=== PATIENT | male | born 1980 | race Caucasian/White ===

== ENCOUNTER 2016-08-11 12:56 | Emergency (ER) | payer SELFPAY ==
[2016-08-11] MEDS ORDERED: TAMSULOSIN HCL 0.4 MG CAP.SR.24H PO ONE (13:38)
[2016-08-11] MEDS ORDERED: OXYCODONE-ACETAMINOPHEN 5-325 MG TABLET PO ONE (13:38)
--- NOTE | 2016-08-11 13:39 | ER Document Report ---
ED Medical Screen (RME) - General Chief Complaint: Flank Pain Stated Complaint: LEFT FLANK PAIN Time seen by provider: 13:38 Mode of Arrival: Ambulatory Information source: Patient Notes: This is a 36-year-old man with a history of kidney stones or presents with left flank pain for the last day. Patient denies any fever, chills, nausea vomiting. Patient does report 3 days of diarrhea. He states the diarrhea has been watery. TRAVEL OUTSIDE OF THE [place] IN LAST 30 DAYS: No - HPI Onset: Just prior to arrival Onset/Duration: Sudden Quality of pain: Dull Severity: Moderate Pain Level: 3 Associated Symptoms: denies: Chest pain, Shortness of breath, Sinus pain/ drainage Exacerbated by: Denies Relieved by: Denies Similar symptoms previously: No Recently seen / treated by doctor: No - Related Data Smoking: Non-smoker Frequency of alcohol use: None Drug Abuse: None Allergies/Adverse Reactions: morphine [Morphine] Allergy (Verified 08/11/16 13:04) ketorolac tromethamine [From Toradol] Adverse Reaction (Verified 08/11/16 13:04) Past Medical History - General Information source: Patient - Social History Cigarette use (# per day): No Chew tobacco use (# tins/day): No Frequency of alcohol use: Occasional Drug Abuse: None Lives with: Family Family history: None - Medical History Medical History: Negative Renal/ Medical History: Reports: Hx Kidney Stones. Denies: Hx Peritoneal Dialysis GI Medical History: Reports: Hx Hepatitis - C Psychiatric Medical History: Reports: Hx Depression Infectious Medical History: Reports: Hx Hepatitis - C Past Surgical History: Reports: Hx Orthopedic Surgery - right wrist, Hx Urinary Tract Surgery - Immunizations Hx Diphtheria, Pertussis, Tetanus Vaccination: Yes Review of Systems - Review of Systems Constitutional: No symptoms reported EENT: No symptoms reported Cardiovascular: No symptoms reported Respiratory: No symptoms reported Gastrointestinal: No symptoms reported Genitourinary: No symptoms reported Male Genitourinary: See HPI Musculoskeletal: See HPI Skin: No symptoms reported Hematologic/Lymphatic: No symptoms reported Neurological/Psychological: No symptoms reported Physical Exam - Vital signs Vitals: Temp Pulse Resp BP Pulse Ox 98.2 F 64 16 131/71 H 99 08/11/16 13:04 08/11/16 13:04 08/11/16 13:04 08/11/16 13:04 08/11/16 13:04 Notes: Physical exam: GENERAL: 46-year-old man, alert and oriented 3, no acute distress HEAD: Atraumatic, normocephalic. EYES: Pupils equal round and reactive to light, extraocular movements intact, sclera anicteric, conjunctiva are normal. ENT: TMs normal, nares patent, oropharynx clear without exudates. Moist mucous membranes. NECK: Normal range of motion, supple without lymphadenopathy or JVD. LUNGS: Breath sounds clear to auscultation bilaterally and equal. No wheezes rales or rhonchi. HEART: Regular rate and rhythm without murmurs, rubs or gallops. ABDOMEN: Soft, normoactive bowel sounds. No tenderness to palpation. No guarding, no rebound. No masses appreciated. Left CVA tenderness. EXTREMITIES: Normal range of motion, no pitting or edema. No clubbing or cyanosis. NEUROLOGICAL: Cranial nerves II through XII grossly intact. Normal speech, normal gait. PSYCH: Normal mood, normal affect. SKIN: Warm, Dry, normal turgor, no rashes or lesions noted. Bedside ultrasound: No significant left-sided nephrosis. Course - Re-evaluation Re-evalutation: 08/11/16 15:25 Patient treated with IV fluids. Bedside ultrasound shows no obvious hydronephrosis. I did discuss the issue with repeat CAT scans with the patient as well as the patient's mother who is at the bedside. An attempt to reduce the amount of radiation exposure, we will forego the CT of the abdomen, treat him conservatively and see how he does over the next week or so. 08/11/16 15:25 - Vital Signs Vital signs: Temp Pulse Resp BP Pulse Ox 97.6 F 62 18 127/74 H 100 08/11/16 15:23 08/11/16 15:23 08/11/16 15:23 08/11/16 15:23 08/11/16 15:23 - Laboratory Result Diagrams: 08/11/16 13:55 08/11/16 13:55 Laboratory results interpreted by me: 08/11/16 14:02 Urine Ketones TRACE H Urine Blood MODERATE H Doctor's Discharge - Discharge Clinical Impression: left renal colic Condition: Stable Disposition: HOME, SELF-CARE Instructions: Kidney Stone ([facility]) Additional Instructions: Recommendations: Rest, drink plenty of fluids, take pain medicine as needed. Keep in mind that the Percocet is a narcotic: See the narcotic instruction sheet. Take the Phenergan for nausea. If you are able to take ibuprofen, I recommend taking this to supplement for pain control. Follow-up at the [facility]: I left the number on the chart. We do not have a urologist at this hospital: I left the number for local urologist who works out of [facility] in [place]. It is recommended that you follow-up with a urologist: [facility] Office [address] [place], [place] [phone] [place] Office [address] [facility]. [place], [place] [phone] The pain medicine you're taking prescribed as a narcotic. There are several important things you should know about this medicine: 1. This medicine contains Tylenol: It is important that you do not take Tylenol (or acetaminophen) while on this medicine. Tylenol is metabolized by the liver and taking too much Tylenol (acetaminophen) can lay to liver damage and even liver failure. 2. Taking narcotics for too long can lead to physical and mental dependence. Take this medicine only if really needed and in the lowest quantity to achieve pain relief. 3. Do not drink alcohol while on this medicine. Alcohol interacts with narcotics and the combination can be dangerous. 4. Do not drive or operate machinery while on this medicine. 5. Narcotics do cause constipation, so drink plenty of fluids and daily stool softeners. Prescriptions: Oxycodone HCl/Acetaminophen [Percocet 5-325 mg Tablet] 1 - 2 tab PO ASDIR PRN # 25 tablet PRN Reason: Tamsulosin HCl [Flomax 0.4 mg Cap.sr] 0.4 mg PO DAILY #7 cap.sr.24h Referrals: [facility] [Provider Group] - Follow up as needed
[2016-08-11] MEDS: NORMAL SALINE 1000 ML 1,000 ML IV PRN ×2 (14:14→15:13)
[2016-08-11 14:19] LABS: ABSOLUTE BASOPHILS # (AUTO) 0.1 10^3/uL (0.0-0.2); ABSOLUTE EOSINOPHILS # (AUTO) 0.1 10^3/uL (0.0-0.6); ABSOLUTE LYMPHOCYTES (AUTO) 2.8 10^3/uL (0.5-4.7); ABSOLUTE MONOCYTES (AUTO) 0.9 10^3/uL (0.1-1.4); ABSOLUTE NEUT (AUTO) 4.8 10^3/uL (1.7-8.2); BASOPHILS % (AUTO) 0.7 % (0-2); EOSINOPHILS % (AUTO) 0.7 % (0-6); HEMATOCRIT 47.8 % (37.9-51.0); HGB HCT DIFFERENCE 0.2; LYMPHOCYTES % (AUTO) 32.4 % (13-45); MEAN CORPUSCULAR HEMOGLOBIN 32.2 pg (27.0-33.4); MEAN CORPUSCULAR HGB CONC 33.4 g/dL (32.0-36.0); MEAN CORPUSCULAR VOLUME 97 fl (80-97); MONOCYTES % (AUTO) 10.3 % (3-13); RED BLOOD COUNT 4.95 10^6/uL (4.35-5.55); RED CELL DISTRIBUTION WIDTH 13.3 % (11.5-14.0); SEGMENTED NEUTROPHILS % (AUTO) 55.9 % (42-78); WHITE BLOOD COUNT 8.5 10^3/uL (4.0-10.5)
[2016-08-11 14:37] LABS: ANION GAP 9 (5-19); BLOOD UREA NITROGEN 15 mg/dL (7-20); CALCIUM 10.2 mg/dL (8.4-10.2); CARBON DIOXIDE 29 mmol/L (22-30); CHLORIDE 104 mmol/L (98-107); CREATININE RESULT 0.83 mg/dL (0.52-1.25); GLUCOSE 88 mg/dL (75-110); POTASSIUM 4.5 mmol/L (3.6-5.0); SODIUM 142.4 mmol/L (137-145)
[2016-08-11 14:54] LABS: APPEARANCE,URINE CLEAR; BILIRUBIN,URINE NEGATIVE (NEGATIVE); GLUCOSE, URINE NEGATIVE (NEGATIVE); KETONES,URINE TRACE mg/dL (NEGATIVE); LEUKOCYTE ESTERASE,URINE NEGATIVE (NEGATIVE); NITRITE,URINE NEGATIVE (NEGATIVE); PROTEIN,URINE NEGATIVE (NEGATIVE); URINE SPECIFIC GRAVITY 1.015; UROBILINOGEN,URINE NEGATIVE mg/dL (<2.0)
[2016-08-11 15:23] VITALS: BP 127/74
== END 2016-08-11 15:30 | disposition home or self-care (01) ==
LOC: ER 12:56
DX: N23 Unspecified renal colic (principal); Z87.442 Personal history of urinary calculi; R19.7 Diarrhea, unspecified; Z88.5 Allergy status to narcotic agent
CPT/HCPCS: 99284; 36415; 85025; 80048; 81001; J7030

== ENCOUNTER 2016-08-15 20:29 | Emergency (ER) | payer SELFPAY ==
[2016-08-15 23:36] LABS: APPEARANCE,URINE SLIGHTLY-CLOUDY; BILIRUBIN,URINE NEGATIVE (NEGATIVE); GLUCOSE, URINE NEGATIVE (NEGATIVE); KETONES,URINE TRACE mg/dL (NEGATIVE); LEUKOCYTE ESTERASE,URINE NEGATIVE (NEGATIVE); NITRITE,URINE NEGATIVE (NEGATIVE); PROTEIN,URINE NEGATIVE (NEGATIVE); URINE SPECIFIC GRAVITY 1.028; UROBILINOGEN,URINE NEGATIVE mg/dL (<2.0)
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
[2016-08-16 01:20] LABS: ABSOLUTE BASOPHILS # (AUTO) 0.1 10^3/uL (0.0-0.2); ABSOLUTE LYMPHOCYTES (AUTO) 4.4 10^3/uL (0.5-4.7); ABSOLUTE MONOCYTES (AUTO) 1.1 10^3/uL (0.1-1.4); ABSOLUTE NEUT (AUTO) 6.3 10^3/uL (1.7-8.2); BASOPHILS % (AUTO) 0.6 % (0-2); EOSINOPHILS % (AUTO) 0.3 % (0-6); HEMATOCRIT 46.2 % (37.9-51.0); HEMOGLOBIN 15.8 g/dL (13.5-17.0); HGB HCT DIFFERENCE 1.2; MEAN CORPUSCULAR HGB CONC 34.1 g/dL (32.0-36.0); MEAN CORPUSCULAR VOLUME 94 fl (80-97); MONOCYTES % (AUTO) 9.5 % (3-13); RED BLOOD COUNT 4.92 10^6/uL (4.35-5.55); RED CELL DISTRIBUTION WIDTH 13.3 % (11.5-14.0); SEGMENTED NEUTROPHILS % (AUTO) 52.6 % (42-78); WHITE BLOOD COUNT 11.9 10^3/uL (4.0-10.5)
[2016-08-16 01:30] LABS: ALANINE AMINOTRANSFERASE 45 U/L (21-72); ALBUMIN 4.7 g/dL (3.5-5.0); ALKALINE PHOSPHATASE 75 U/L (38-126); ANION GAP 12 (5-19); ASPARTATE AMINO TRANSFERASE 86 U/L (17-59); BILIRUBIN,DIRECT 0.5 mg/dL (0.0-0.4); BILIRUBIN,TOTAL 0.9 mg/dL (0.2-1.3); BLOOD UREA NITROGEN 15 mg/dL (7-20); CALCIUM 10.4 mg/dL (8.4-10.2); CARBON DIOXIDE 32 mmol/L (22-30); CHLORIDE 100 mmol/L (98-107); CREATININE RESULT 0.88 mg/dL (0.52-1.25); GLUCOSE 105 mg/dL (75-110); LIPASE 35.4 U/L (23-300); POTASSIUM 3.8 mmol/L (3.6-5.0); SODIUM 143.5 mmol/L (137-145); TOTAL PROTEIN 7.9 g/dL (6.3-8.2)
[2016-08-16 04:29] VITALS: BP 104/84
== END 2016-08-16 04:22 | disposition home or self-care (01) ==
LOC: ER 20:29
DX: R10.11 Right upper quadrant pain (principal); R19.7 Diarrhea, unspecified; R11.10 Vomiting, unspecified; F17.200 Nicotine dependence, unspecified, uncomplicated; Z79.899 Other long term (current) drug therapy; W10.9XXA Fall (on) (from) unspecified stairs and steps, initial encounter
CPT/HCPCS: 36415; 74177; 80053; 81001; 83690; 85025; 99284